=== PATIENT | male | born 1975 | race Caucasian/White ===

== ENCOUNTER → 2019-06-06 | Outpatient (CLI) | payer OTHER ==
[~2019-06-06] MED LIST: CELE200C PO; CETI10TA22 PO
--- NOTE | 2019-06-06 13:51 | CONS ---
DATE OF CONSULTATION: 06/06/2019 INITIAL CONSULTATION FOR PAIN CLINIC CHIEF COMPLAINT: Neck and left upper extremity pain. 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 The patient reports he reaggravated in December of this year. The patient reports the pain that was constant, stabbing, throbbing, shooting in the left upper extremity, intermittent in intensity, changes during the day with activity, tingling, numbness, radiation as well, burning and aching also in the left arm and base of the neck and upper back. The patient reports it awakens him from sleep about once a night, does not affect his bowel or bladder control, it does not affect his ability to walk, difficulty with sleeping and carrying items especially with his left arm, reaching up over his head with his left arm. The patient reports he has had epidural injections in the past, physical therapy as well as exercise, which is currently going on all of which have helped. The patient takes Celebrex daily, which helps more with the low back issues, upper back and neck. The patient reports disability rating from 0-10, 10 being the worst, is at 7 with recreation, is at 5 with family home responsibilities, 6 with social activity, 5 with occupation and sexual behavior, life support activities, and self-care activities. The patient did have a thoracic spine and cervical spine films. Thoracic spine showing mild degeneration of the thoracic spine with right paracentral disc protrusion at T4-T5 and T5-T6. Cervical spine showing multilevel degeneration with moderate spinal canal stenosis at C6-C7 and moderate spinal canal stenosis at C5-C6, multilevel neural foraminal narrowing worse at C6-C7 with moderate to severe right and moderate to mild left neural foraminal narrowing. PAST MEDICAL HISTORY: Significant for irritable bowel syndrome, left knee surgery in 2006, 2013, 2016 and has one scheduled tomorrow, right knee scope and right side surgery as well. CURRENT MEDICATIONS: Include Celebrex and Zyrtec. ALLERGIES: The patient has no known drug allergies. FAMILY HISTORY: Significant for diabetes. SOCIAL HISTORY: The patient drinks 1-2 alcoholic drinks a week, does not smoke. Denies any illegal, illicit or recreational drugs. He is , lives with his spouse, has 2 children, living at home, is active duty and lives locally in [place], [place]. REVIEW OF SYSTEMS: The patient's review of systems is positive for those items mentioned in history of present illness. All systems reviewed and otherwise negative. It is complete, full and well documented on the patient's chart. PHYSICAL EXAMINATION: VITAL SIGNS: The patient's blood pressure is 145/92, pulse 83, respirations 18, temperature 98.4 degrees Fahrenheit, height 5 feet 8 inches and weight is 190 pounds. GENERAL: The patient is awake, alert, oriented, appropriate, very pleasant demeanor. HEENT: Shows normocephalic, atraumatic. Extraocular movements are intact and symmetrical. Oral cavity: Mucous membranes moist and pink. Dentition is intact. NECK: Shows anterior throat supple without palpable lymphadenopathy noted. Swallow reflex symmetrical. CHEST: Shows normal on inspection. Breath sounds clear to auscultation bilaterally. HEART: Shows S1, S2 clear. No murmurs auscultated. ABDOMEN: Soft, nontender, nondistended. No palpable organomegaly is noted. No rebound or guarding demonstrated. BACK: Shows spine grossly in the midline. Normal appearing thoracic kyphosis and lumbar lordotic curvature. Lumbar paraspinous muscle shows symmetrical on inspection, on palpation shows some moderate tenderness bilaterally Cervical paraspinous musculature shows symmetrical, but with palpation shows some moderate tenderness, more on the left than the right in the superior medial trapezius as well as inferior cervical paraspinous musculature, right side is nontender. The patient has good rotational motion of cervical spine, both laterally greater than 45 degrees, closer to 90 degrees right and left as well as full extension, full forward flexion without significant difficulty. EXTREMITIES: The patient's upper extremities show deep tendon reflexes at 2+ in the biceps, triceps tendons. Motor exam is strong with 5/5 orchardist strength, bicep and tricep flexions are symmetrical. Peripheral pulses are 2+ radial distribution. Upper extremities are warm and dry to touch, equal in color and appearance. Shoulder shrug is strong and intact without loss of strength or resistance, but with some moderate tenderness to the left bicep with resistance. This is true with abduction of the shoulder to 90 degrees as well. SKIN: The patient's skin shows warm and dry, good turgor. No edema. No sores, rashes or bruising throughout. IMPRESSION: 1. This is a 43-year-old male with long history of upper back, neck and left upper extremity pain, worse over the past 5 months or so in a radicular fashion. 2. MRI scans of cervical and thoracic spines as noted. 3. Irritable bowel syndrome. PLAN: Options were discussed with the patient including conservative medical managements, physical therapies and interventional techniques. He would like to pursue interventional techniques as he has had good success with these in the past. We discussed a cervical epidural steroid injection using description as well as anatomical models to describe the procedure. The patient will wait for preauthorization with insurance provider. Once this is obtained, we would like him return for cervical epidural steroid injection at that time. In the meantime, we will try Medrol Dosepak. The patient was given instruction as well as side effects to be aware of with the medication and will follow up in approximately one week and plan on cervical epidural steroid injection on return. KRISTIE JANE MD DR: KAREL/rodrigo JOB#: [id number] / [id number]
== END | disposition home or self-care (01) ==
LOC: PNCL 08:05
PROVIDERS: ATTEND Anesthesiology
DX: M54.2 Cervicalgia (principal); M79.602 Pain in left arm; Z72.89 Other problems related to lifestyle
CPT/HCPCS: G0463

== ENCOUNTER → 2019-06-20 | Outpatient (CLI) | payer OTHER ==
[~2019-06-20] MED LIST changes: +IOHEXOL 180 MG/ML 10 ML VIAL. ONE; +methylPREDNISolone ACETATE 40 MG/ML VIAL. ONE; +methylPREDNISolone ACETATE 80 MG/ML VIAL. ONE
--- NOTE | 2019-06-20 11:42 | PAIN ---
DATE OF SERVICE: 06/20/2019 PROGRESS NOTE FOR PAIN CLINIC DIAGNOSES: 1. Cervical radiculopathy with cervical degenerative disk disease. 2. Thoracic degenerative disk disease. HISTORY OF PRESENT ILLNESS: The patient is a 43-year-old male who returns for followup status post initial evaluation and preauthorization for cervical epidural steroid injection. The patient obtained that and would like to proceed. The patient reports still significant pain in the base of the neck, especially in the left upper extremity greater than right, radiating to the shoulder and arm. The patient reports it is a 9 on a scale of 10 at its worst over the past week, 7 on average, 5 at its least and is a 5 today. We tried Medrol Dosepak, which did decrease the pain, but only while he was taking it for the first 4-5 days. The patient reports otherwise doing well. No new motor or sensory deficits, no other changes. The patient describes the pain as aching and sharp, tingling, burning and radiating into the left upper extremity. PHYSICAL EXAMINATION: VITAL SIGNS: The patient's blood pressure is 121/74, pulse 75, respirations 18, temperature 98.2 degrees Fahrenheit, height is 5 feet 6 inches, weight is 190 pounds. GENERAL: The patient is awake, alert, oriented, appropriate, very pleasant demeanor. HEENT: Shows normocephalic, atraumatic. Extraocular movements are intact and symmetrical. Oral cavity: Mucous membranes moist and pink. Dentition is intact. NECK: Shows anterior throat supple without palpable lymphadenopathy noted. Swallow reflex symmetrical. CHEST: Shows normal on inspection. Breath sounds are clear bilaterally. HEART: Shows S1, S2 clear. ABDOMEN: Soft, nontender, nondistended. BACK: Shows spine grossly in the midline. Cervical paraspinous muscle shows symmetrical on inspection; on palpation shows some moderate tenderness diffusely, but only diffusely without radiation in the middle and lower distribution of cervical paraspinous muscles more on the left than the right. This is true into the superior medial trapezius on the left as well with some moderate tenderness, but only with deeper palpation, but right side shows no tenderness in the trapezius region. EXTREMITIES: Upper extremities show deep tendon reflexes 2+ in the biceps, triceps tendons. Motor exam is strong with 5/5 field agent strength, bicep and tricep flexion is equal. Peripheral pulses are 2+ radial. No peripheral edema is noted. Options were discussed with the patient. The patient's old chart was reviewed as his current medication regimen updated. Current review of systems updated today as well. We will proceed with a cervical epidural steroid injection today with fluoroscopic guidance. Risks were again discussed including, but not limited to bleeding, infection, possibility of epidural hematoma, subsequent neurologic compromise, dural puncture, headaches, spinal cord and/or nerve damage, side effects of steroid medication and poor results regarding pain control. The patient understands and wished to proceed. The patient will return to clinic in approximately 2 weeks for followup. He was counseled as to return appointment, activity level and side effects to be aware of. DIAGNOSES: Cervical radiculopathy with cervical degenerative disk disease. PROCEDURE: Cervical epidural steroid injection, translaminar approach C6-C7 level using C-arm fluoroscopic guidance under sterile prep and drape using local anesthetic. MEDICATION INJECTED: A total of 120 mg of Depo-Medrol plus 5 mL of preservative-free normal saline and 2 mL of contrast. CONDITION AT DISCHARGE: Stable. The patient tolerated the procedure well, had no complications. KRISTIE JANE MD DR: KAREL/rodrigo JOB#: [id number] / [id number]
== END ==
LOC: PNCL 08:02
PROVIDERS: ATTEND Anesthesiology
DX: M50.123 Cervical disc disorder at C6-C7 level with radiculopathy (principal); M51.34 Other intervertebral disc degeneration, thoracic region
CPT/HCPCS: 62321; J1030; J1040; Q9965

== ENCOUNTER → 2019-08-08 | Outpatient (CLI) | payer OTHER ==
--- NOTE | 2019-08-08 09:59 | PAIN ---
DATE OF SERVICE: 08/08/2019 PROGRESS NOTE FOR PAIN CLINIC DIAGNOSIS: Cervical radiculopathy with cervical degenerative disk disease. HISTORY OF PRESENT ILLNESS: The patient is a 43-year-old male who returns for followup status post cervical epidural steroid injection x 1 with about 50% improvement overall, now returning after preauthorization for second injection today, still pain in the base of the neck, upper extremities, more on the left than the right and left forearm, radiating. The patient reports it is 7 on a scale of 10 at its worst over the past week, 5 on average and 3 at its least and is a 5 today. The patient reports it is aching, sharp, shooting, burning, worse with activity, reaching over his head with his left arm. The patient reports it is better with resting or lying down, does not awaken him from sleep at night. The patient reports no new motor or sensory deficits, no new bowel or bladder incontinence or other complaints. PHYSICAL EXAMINATION: VITAL SIGNS: The patient's blood pressure is 130/80, pulse is 83, respirations 18, temperature 97.7 degrees Fahrenheit, height is 5 feet 6 inches, weight is 199 pounds. GENERAL: The patient is awake, alert, oriented, appropriate, very pleasant demeanor. HEENT: Shows normocephalic, atraumatic. Extraocular movements are intact and symmetrical. Oral cavity: Mucous membranes moist and pink. Dentition is intact. NECK: Shows anterior throat supple without palpable lymphadenopathy noted. Swallow reflex symmetrical. CHEST: Shows normal on inspection. Breath sounds clear to auscultation bilaterally. HEART: Shows S1, S2 clear. No murmurs auscultated. ABDOMEN: Soft, nontender, nondistended. No palpable organomegaly is noted. No rebound or guarding demonstrated. BACK: Shows spine grossly in the midline. Normal appearing thoracic kyphosis and cervical lordotic curvature. Cervical paraspinous muscle shows symmetrical on inspection, on palpation shows some moderate tenderness diffusely bilaterally going diffusely without significant radiation into the superior aspect of the trapezius musculature too, more on the left than the right. The patient shows good rotational motion of cervical spine, both laterally as well as extension and flexion without significant difficulty. EXTREMITIES: Upper extremities show deep tendon reflexes 2+ in the biceps and triceps tendons. 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 Peripheral pulses are 2+ radial distribution. No peripheral edema is noted bilaterally. Options were discussed with the patient. The patient's old chart was reviewed as his current medication regimen updated. Current review of systems updated today as well. We will proceed with a cervical epidural steroid injection today with fluoroscopic guidance. Risks were again discussed including, but not limited to bleeding, infection, possibility of epidural hematoma, subsequent neurological compromise, dural puncture, headaches, spinal cord and/or nerve damage, side effects of steroid medication and poor results regarding pain control. The patient understands and wished to proceed. The patient will return to clinic in approximately 2 weeks for followup. He was counseled on return appointment, activity level and side effects to be aware of. DIAGNOSIS: Cervical radiculopathy with cervical degenerative disk disease. PROCEDURE: Cervical epidural steroid injection, translaminar approach C6-C7 level using C-arm fluoroscopic guidance under sterile prep and drape using local anesthetic. MEDICATION INJECTED: A total of 120 mg Depo-Medrol plus 5 mL of preservative-free normal saline and 2 mL of contrast. CONDITION AT DISCHARGE: Stable. The patient tolerated the procedure well, had no complications. KRISTIE JANE MD DR: KAREL/rodrigo JOB#: [id number] / [id number]
== END ==
LOC: PNCL 07:41
PROVIDERS: ATTEND Anesthesiology
DX: M50.123 Cervical disc disorder at C6-C7 level with radiculopathy (principal)
CPT/HCPCS: 62321; J1030; J1040; Q9965

== ENCOUNTER → 2019-10-14 | Outpatient (CLI) | payer OTHER ==
[~2019-10-14] MED LIST changes: -CETI10TA22 PO; +CETI10TA24 PO; -IOHEXOL 180 MG/ML 10 ML VIAL. ONE; -methylPREDNISolone ACETATE 40 MG/ML VIAL. ONE; -methylPREDNISolone ACETATE 80 MG/ML VIAL. ONE
--- NOTE | 2019-10-14 13:13 | PAIN ---
DATE OF SERVICE: 10/14/2019 PROGRESS NOTE FOR PAIN CLINIC DIAGNOSES: 1. Lumbar radiculopathy with lumbar degenerative disk disease. 2. Cervical radiculopathy with cervical degenerative disk disease. HISTORY OF PRESENT ILLNESS: The patient is a 43-year-old male who returns for followup status post previous cervical epidural steroid injections x 2, last seen 08/08/2019, patient did very well with about 60% improvement, reports his neck is doing quite a bit better. He has had some low back pain; however, with radiation to posterior gluteus and thighs bilaterally, right essentially equal to left, which has been problematic. He did have an MRI scan report, which he brings with him today from 08/10 showing multilevel degeneration, most significant at L4-L5 and L5-S1 with disk osteophyte complex and superimposed broad central disk protrusion at L5-S1 with disk material contacting the transitioning bilateral S1 nerve roots in the lateral recesses. The patient reports still significant pain in the low back, bilateral lower extremities are described as aching and sharp, shooting into the legs and posterior gluteus and radiating across the low back. The patient reports it is 7 on a scale of 10 at its worst over the past week, 5 on average, 3 at its least and is a 3 today. The patient reports his neck is doing much better. He has increased his activity with greater ease and comfort, doing walking distances, work activities, household activities, traveling with greater ease and working out with heavier weights with greater ease and comfort with the upper extremities. The patient reports no new motor or sensory deficits, no new bowel or bladder incontinence. His chief complaint again is low back pain at this time. PHYSICAL EXAMINATION: VITAL SIGNS: The patient's blood pressure 126/77, pulse is 81, respirations are 16, temperature 97.3 degrees Fahrenheit, height is 5 feet 6 inches, weight is 198 pounds. GENERAL: The patient is awake, alert, oriented, appropriate, very pleasant demeanor. HEENT: Head shows normocephalic, atraumatic. Extraocular movements are intact and symmetrical. Oral cavity: Mucous membranes moist and pink. Dentition is intact. NECK: Shows anterior throat supple without palpable lymphadenopathy noted. Swallow reflex symmetrical. CHEST: Shows normal on inspection. Breath sounds are clear to auscultation bilaterally. HEART: Shows S1, S2 clear. No murmurs auscultated. ABDOMEN: Soft, nontender, nondistended. No palpable organomegaly is noted. No rebound or guarding demonstrated. BACK: Shows spine grossly in the midline. Normal appearing cervical lordotic curvature, thoracic kyphotic curvature and lumbar lordotic curvature. Lumbar paraspinous muscle shows symmetrical on inspection, on palpation shows some moderate tenderness diffusely throughout the middle and lower distribution of paraspinous muscles bilaterally, but only diffusely without radiation. The patient has good rotational motion of lumbar spine, both laterally as well as extension and flexion without significant increase in pain. EXTREMITIES: The patient's lower extremities show deep tendon reflexes 2+ in the patellar, 1+ tendo-calcaneus tendons. Motor exam is strong with 5/5 dorsiflexion, extension, quadriceps and hamstring flexion symmetrical. Peripheral pulses are 1+ posterior tibia. No peripheral edema is noted bilaterally. Options were discussed with the patient. The patient's old chart was reviewed as his current medication regimen updated. Current review of systems updated today as well. We will preauthorize the patient for lumbar epidural steroid injection with clinical radiculopathy in the L5-S1 dermatomal distribution bilaterally. PLAN: We will plan on translaminar L5-S1 level lumbar epidural steroid injection on the patient's return. The patient will continue with stretching and strengthening exercises and working out as tolerated. Also, walking as tolerated. The patient will return to clinic in approximately 1 week and plan on lumbar epidural steroid injection at that time. KRISTIE JANE MD DR: KAREL/rodrigo JOB#: [id number] / [id number]
== END | disposition home or self-care (01) ==
LOC: PNCL 07:40
PROVIDERS: ATTEND Anesthesiology
DX: M51.16 Intervertebral disc disorders with radiculopathy, lumbar region (principal); M50.10 Cervical disc disorder with radiculopathy, unspecified cervical region
CPT/HCPCS: G0463

== ENCOUNTER → 2019-10-26 | Outpatient (CLI) | payer OTHER ==
[~2019-10-26] MED LIST changes: +IOHEXOL 180 MG/ML 10 ML VIAL. ONE; +methylPREDNISolone ACETATE 40 MG/ML VIAL. ONE; +methylPREDNISolone ACETATE 80 MG/ML VIAL. ONE
--- NOTE | 2019-10-26 11:03 | PAIN ---
DATE OF SERVICE: 10/26/2019 PROGRESS NOTE FOR PAIN CLINIC DIAGNOSES: 1. Lumbar radiculopathy with lumbar degenerative disk disease. 2. Cervical radiculopathy with cervical degenerative disk disease. HISTORY OF PRESENT ILLNESS: The patient is a 43-year-old male who returns for followup status post cervical epidural steroid injection x 2. The patient reports he has done very well with the upper extremities about 90% improvement. Main complaint is low back pain. We had discussed this on his last visit and planned for lumbar epidural steroid injection today, still has significant pain in the low back region at 8 on a scale of 10 at its worst in the past week, 6 on average, 3 at its least and is a 3 today. It is tight, stabbing, burning, radiating, worse with walking, standing, changing positions, better with sitting or lying down, generally does not awaken him from sleep at night and again, the shoulders and upper extremity doing much better. PHYSICAL EXAMINATION: VITAL SIGNS: The patient's blood pressure 125/72, pulse 71, respirations 16, temperature 97.9 degrees Fahrenheit, weight is 195 pounds. GENERAL: The patient is awake, alert, oriented, appropriate, very pleasant demeanor. HEENT: Shows normocephalic, atraumatic. Extraocular movements are intact and symmetrical. Oral cavity: Mucous membranes moist and pink. Dentition is intact. NECK: Shows anterior throat supple without palpable lymphadenopathy noted. Swallow reflex symmetrical. CHEST: Shows normal on inspection. Breath sounds are clear bilaterally. HEART: Shows S1, S2 clear. No murmurs auscultated. ABDOMEN: Soft, nontender, nondistended. No palpable organomegaly is noted. BACK: Shows spine grossly in the midline, normal-appearing cervical lordotic curvature, thoracic kyphotic curvature and lumbar lordotic curvature. Lumbar paraspinous muscle shows symmetrical on inspection, on palpation shows some moderate tenderness diffusely bilaterally going diffusely without significant radiation. EXTREMITIES: The patient's lower extremities show deep tendon reflexes 2+ in the patellar and tendo-calcaneus tendons. Motor exam is strong with 5/5 dorsiflexion, extension, quadriceps and hamstring flexion. Peripheral pulses are 1+ posterior tibia. No peripheral edema is noted bilaterally. Options were discussed with the patient. The patient's old chart was reviewed as his current medication regimen updated. Current review of systems updated today as well. We will proceed with a lumbar epidural steroid injection with fluoroscopic guidance today. Risks were again discussed including, but not limited to bleeding, infection, possibility of epidural hematoma, subsequent neurological compromise, dural puncture, headaches, spinal cord and/or nerve damage, side effects of steroid medication and poor results regarding pain control. The patient understands and wished to proceed. The patient will return to clinic in approximately 2 weeks for followup. He was counseled on return appointment, activity level and side effects to be aware of. DIAGNOSES: Lumbar radiculopathy with lumbar degenerative disk disease. PROCEDURE: Lumbar epidural steroid injection, translaminar approach at L5-S1 level using C-arm fluoroscopic guidance under sterile prep and drape using local anesthetic. MEDICATION INJECTED: A total of 120 mg Depo-Medrol plus 10 mL of preservative-free normal saline and 2 mL of contrast. CONDITION AT DISCHARGE: Stable. The patient tolerated the procedure well, had no complications. KRISTIE JANE MD DR: KAREL/nts JOB#: [id number] / [id number]
== END ==
LOC: PNCL 08:08
PROVIDERS: ATTEND Anesthesiology
DX: M51.16 Intervertebral disc disorders with radiculopathy, lumbar region (principal); M50.10 Cervical disc disorder with radiculopathy, unspecified cervical region
CPT/HCPCS: 62323; J1030; J1040; Q9965

== ENCOUNTER → 2020-03-22 | Outpatient (CLI) | payer OTHER ==
[~2020-03-22] MED LIST changes: -CETI10TA24 PO; +CETI10TA74 PO
--- NOTE | 2020-03-22 10:33 | PAIN ---
DATE OF SERVICE: 03/22/2020 PROGRESS NOTE FOR PAIN CLINIC DIAGNOSES: 1. Cervical radiculopathy with cervical degenerative disk disease. 2. Lumbar radiculopathy with lumbar degenerative disk disease. 3. Thoracic degenerative disk disease. HISTORY OF PRESENT ILLNESS: The patient is a 44-year-old male, who returns for followup status post lumbar epidural steroid injections as well as cervical epidural steroid injections, most recently 10/26/2019. The patient had obtained preauthorization for cervical epidural steroid injection. He has had some increased radicular pain in the left upper extremity and is improved with that now and would like to proceed. The patient reports still pain in the base of neck, left shoulder, left upper extremity into the arm and hand and into the mid upper back as well as the base of the neck. The patient reports it is an 8 on a scale of 10 at its worst over the past week, 7 on an average, 2 at its least and is a 7 today. The patient reports it is tingling and burning in the left arm and shoulder, radiating, aching and sharp as well in the base of the neck. The patient reports it generally does not awaken him from sleep at night, worse with activity, repetitive motions with the upper extremities, especially on the left side, weightlifting, reaching with his arm over his head with his left side, but again, doing fairly well with good response to cervical epidural steroid injection, which was most recently in 07/2019. The patient reports no new motor or sensory deficits, no other changes. PHYSICAL EXAMINATION: VITAL SIGNS: The patient's blood pressure is 129/76, pulse 78, respirations 16, temperature 98.0 degrees Fahrenheit, weight is 193 pounds. GENERAL: The patient is awake, alert, oriented, appropriate, very pleasant demeanor. HEENT: Shows normocephalic, atraumatic. Extraocular movements are intact and symmetrical. Oral cavity: Mucous membranes moist and pink; dentition is intact. NECK: Shows anterior throat supple without palpable lymphadenopathy noted. Swallow reflex symmetrical. CHEST: Shows normal on inspection. Breath sounds are clear bilaterally. HEART: Shows S1, S2 clear. No murmurs auscultated. ABDOMEN: Soft, nontender and nondistended. BACK: Shows spine grossly in the midline. Normal-appearing thoracic kyphosis and lumbar lordotic curvature. Cervical paraspinous musculature shows symmetrical on inspection, on palpation shows some moderate tenderness diffusely bilaterally, but only diffusely without significant radiation. The patient has good rotational motion of the lumbar spine as well as the cervical spine. Cervical spine shows greater than 45 degrees, closer to 90 degrees, right and left lateral rotation with full extension and full forward flexion without significant increase in pain. Lumbar spine shows good rotation at 10 degrees, right and left as well as extension and flexion without significant increase in pain as well. EXTREMITIES: The patient's upper extremities show deep tendon reflexes 2+ in the biceps and triceps tendons. Motor exam is strong with 5/5 surface supply breathing apparatus strength, bicep and tricep flexion and symmetrical. Peripheral pulses are 2+ radial. No peripheral edema is noted bilaterally. Options were discussed with the patient. The patient's old chart was reviewed as his current medication regimen updated. Current review of systems updated today as well. We will proceed with a cervical epidural steroid injection first in this series with fluoroscopic guidance. Risks were again discussed including, but not limited to bleeding, infection, possibility of epidural hematoma, subsequent neurological compromise, dural puncture, headaches, spinal cord and/or nerve damage, side effects of steroid medication and poor results regarding pain control. The patient understands and wished to proceed. The patient will return to the clinic in approximately 2 weeks for followup. He was counseled as to the return appointment, activity level and side effects to be aware of. DIAGNOSIS: Cervical radiculopathy with cervical degenerative disk disease. PROCEDURE: Cervical epidural steroid injection, translaminar approach, C6-C7 level, using C-arm fluoroscopic guidance under sterile prep and drape using local anesthetic. MEDICATIONS INJECTED: A total of 120 mg of Depo-Medrol plus 5 mL preservative-free normal saline and 2 mL of contrast. CONDITION AT DISCHARGE: Stable. The patient tolerated procedure well, had no complications. KRISTIE JANE MD DR: KAREL/rodrigo JOB#: [id number] / [id number]
== END | disposition home or self-care (01) ==
LOC: PNCL 08:50
PROVIDERS: ATTEND Anesthesiology
DX: M50.123 Cervical disc disorder at C6-C7 level with radiculopathy (principal); M51.16 Intervertebral disc disorders with radiculopathy, lumbar region; M51.34 Other intervertebral disc degeneration, thoracic region
CPT/HCPCS: 62321; J1030; J1040; Q9965

== ENCOUNTER → 2020-04-12 | Outpatient (CLI) | payer OTHER ==
[~2020-04-12] MED LIST changes: +CETI10TA24 PO; -CETI10TA74 PO
--- NOTE | 2020-04-12 14:11 | PDOC ---
Progress Note - Pain Clinic Date of Service: DOS: DATE: 04/12/20 TIME: 14:06 Diagnosis: Dx: Lumbar to colopathy with lumbar degenerative disc disease Cervical tracheal operative cervical degenerative disc disease Thoracic degenerative disc disease History or Present Illness: HPI: 44-year-old male returns follow-up status post cervical epidural to injection x1 and lumbar epidural steroid injections in the past. Patient reports he did very well with each of these about 75% improvement with his lumbar epidural steroid duration 1% per with the cervical. Patient which has been traveling back and forth he is relocating to [facility] and has been traveling in the car for multiple hours at a time which is exacerbated the pain in his low back. Patient reports pain low back left lower extremity posterior gluteus posterior thigh posterior lateral calf on the left side especially. Patient which is burning and aching sharp shooting dull in the back itself. Patient rates his pain is an 8 on a scale of 10 is worse of the past week 7 on average for this least and is a 4 today. Patient reports is exacerbated by sitting in a car for prolonged periods does not cause any motor loss. Reports has been awakened from sleep once again about every 7-8 hours. Previously was doing very well with doing walking distances work activities household activities try with greater ease and comfort. Physical Exam: VS: Blood pressure is 130/85 pulse 99 respirations 18 temperature is 98.1 F and weight is 194 pounds PE: PHYSICAL EXAMINATION: GENERAL: The patient is awake, alert, oriented, appropriate, very pleasant demeanor HEENT: Shows normocephalic, atraumatic. Extraocular movements are intact and symmetrical. Oral cavity: Mucous membranes moist and pink. NECK: Shows anterior throat supple without palpable lymphadenopathy noted. Swallow reflex symmetrical. CHEST: Shows normal on inspection. Breath sounds are clear bilaterally, no rales rhonchi or wheezes auscultated. HEART: Shows S1, S2 clear. No murmurs auscultated. ABDOMEN: Soft, nontender, nondistended. No palpable organomegaly is noted. No rebound or guarding demonstrated. BACK: Shows spine grossly in the midline. Normal-appearing cervical lordotic curvature. There is slightly increased thoracic kyphosis, some minor flattening of the lumbar lordotic curvature. Lumbar paraspinous muscles show symmetrical on inspection, on palpation shows some moderate tenderness diffusely throughout the upper, middle and lower distribution of the paraspinous muscles bilaterally and also into the lower thoracic paraspinous musculature, firm , but without specific trigger points, without radiation of pain. The patient has good rotational motion of the lumbar spine, both laterally as well as extension and flexion without significant difficulty. No tenderness over the spinous processes, sacrum or sacroiliac regions. EXTREMITIES: Lower extremities show deep tendon reflexes 2+ in the patellar and tendo calcaneus tendons. Motor exam is 5 on a scale of 5 with right dorsiflexion, extension, quadriceps and hamstring flexion and 5/5 on the left. Peripheral pulses are 1+ posterior tibial. No peripheral edema is noted bilaterally. Lower extremities are warm and dry to touch, equal in color and appearance. SKIN: Shows warm and dry, good turgor. No edema. No sores, rashes or bruising throughout. Procedure: Procedure: Options were discussed with the patient. Patient's old chart was reviewed current medication regimen updated current review of systems updated today as well. We will proceed with a lumbar epidural steroid injection with fluoroscopic guidance risks are discussed including but not limited to bleeding infection possibility of epidural hematoma subsequent neurological compromise dural puncture headache spinal cord and or nerve damage side effects of steroid medication and/guarding pain control. Patient understand and wish to proceed. Patient return to clinic in approximately 2 weeks or as necessary would like to call for his next appointment. Patient was counseled as to activity level as well as side effects to be aware of. Medication Injected: Med Injected: Procedure is lumbar epidural steroid injection under local anesthetic using st erile prep and drape at the L5-S1 level using C-arm fluoroscopic guidance in both AP and lateral views medications injected is 120 mg Depo-Medrol + 10 mL preservative-free normal saline and 2 mL contrast- condition at discharge is stable patient tolerated procedure well had no complications. Condition at Discharge: Condition at Discharge: Patient's condition at discharge is stable patient tolerated the procedure well had no complications. KRISTIE JANE MD Apr 12, 2020 14:11
== END | disposition home or self-care (01) ==
LOC: PNCL 13:08
PROVIDERS: ATTEND Anesthesiology
DX: M51.16 Intervertebral disc disorders with radiculopathy, lumbar region (principal); M50.30 Other cervical disc degeneration, unspecified cervical region; M51.34 Other intervertebral disc degeneration, thoracic region; Z79.899 Other long term (current) drug therapy
CPT/HCPCS: 62323; J1030; J1040; Q9965